=== PATIENT | male | born 1980 | race Caucasian/White ===

== ENCOUNTER 2016-12-13 11:56 | Day surgery (SDC) | payer BC ==
[2016-12-11 09:07] VITALS: BMI 36.2
[~2016-12-13 11:56] MED LIST: LACTATED RINGERS 1,000 ML IV SCH
[2016-12-13 12:50] VITALS: RESP 16; TEMP 98.5
[2016-12-13] MEDS ORDERED: LIDOCAINE 1% 20 ML VIAL (10MG/ML) FOR IV START INTRADERMA ONE (12:53)
[2016-12-13] MEDS ORDERED: LIDOCAINE 1% INJ 10MG/ML (20 ML MDV) ONE (13:40)
[2016-12-13] MEDS ORDERED: PROPOFOL 10 MG/ML 20 ML VIAL IV ONE (13:40)
--- NOTE | 2016-12-13 14:16 | P.PCN ---
Date of Procedure: 12/13/16 Procedure(s) Performed: Procedure: Colonoscopy and biopsy. Preoperative diagnosis: Change in bowel habits. Postoperative diagnosis: Exam of the colon and terminal ileum within normal limits. Preparation: HalfLytely prep. Sedation: Was provided by anesthesia. Brief clinical history: The patient is a 36-year-old male who was evaluated in the office couple weeks ago for change in bowel habits. 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 The patient has 3-4 urgent bowel movements daily. Lately it has been soft and pasty in consistency. This evaluation is to rule out infectious or inflammatory conditions or other pathology. Procedure: With the patient on his left lateral decubitus position and after informed consent and adequate sedation, the perianal area was inspected and it did not show any fissures or fistulas. There were no masses felt on digital rectal examination. The Olympus CFQ 160L video colonoscope was then inserted in the rectum in the usual fashion and advanced to the cecum. I intubated the ileocecal valve and examined the terminal ileum. Terminal ileum and colon appeared healthy with no edema, erythema, friability, ulceration, exudation or spontaneous bleeding. I obtained biopsies from the terminal ileum and randomly from the colon and I retroflexed the endoscope in the rectum before the endoscope was withdrawn. The patient tolerated the procedure well. Plan: The patient was reassured. Will await biopsy results. He will follow up in the office as planned and we will keep you updated on his progress.
[2016-12-13 14:36] VITALS: BP 138/79; PULSE 99
== END 2016-12-13 14:56 | disposition home or self-care (01) ==
LOC: ORWHC2ENDO 11:56
DX: R19.4 Change in bowel habit (principal); K21.9 Gastro-esophageal reflux disease without esophagitis; G47.33 Obstructive sleep apnea (adult) (pediatric); Z79.899 Other long term (current) drug therapy
CPT/HCPCS: 88305; 45380; J2001; J2704

== ENCOUNTER 2018-09-15 15:33 | Inpatient (IN) | payer BC, OTHER ==
[2018-09-15] MEDS ORDERED: NALOXONE 0.4 MG/ML 1 ML VIAL IV PRN (18:38)
[2018-09-15] MEDS ORDERED: ACETAMINOPHEN TAB 325 MG TAB PO PRN (18:38)
[2018-09-15] MEDS ORDERED: IBUPROFEN 400 MG TAB PO PRN (18:38)
[2018-09-15] MEDS ORDERED: VANCOMYCIN IV PER PHARMACY 1 EACH MISC MISCELLANE PRN (18:41)
--- NOTE | 2018-09-15 18:42 | XR ---
EXAMINATION TYPE: XR knee complete LT DATE OF EXAM: 09/15/2018 COMPARISON: NONE HISTORY: Pain and swelling TECHNIQUE: 4 views FINDINGS: I see no fracture nor dislocation. There is soft tissue swelling anterior to the patella. T here is no sign of knee joint effusion. Joint spaces are fairly normal. IMPRESSION: There is evidence of patella bursitis. No fracture. Normal joint spaces.
[2018-09-15 18:46] LABS: Basophils # (A) 0.1 k/uL (0-0.2); Basophils % (A) 1 %; Eosinophils # (A) 0.3 k/uL (0-0.7); Eosinophils % (A) 3 %; HCT 38.1 % (39.0-53.0); HGB 13.4 gm/dL (13.0-17.5); Lymphocytes % (A) 19 %; MCH 29.6 pg (25.0-35.0); MCHC 35.2 g/dL (31.0-37.0); Mean Platelet Volume 5.9; Monocytes # (A) 0.5 k/uL (0-1.0); Monocytes % (A) 4 %; Neutrophils # (A) 7.6 k/uL (1.3-7.7); Neutrophils % (A) 72 %; Platelet Count 392 k/uL (150-450); RBC 4.54 m/uL (4.30-5.90); RDW 12.5 % (11.5-15.5); WBC 10.6 k/uL (3.8-10.6)
[2018-09-15 18:53] LABS: ALT 130 U/L (21-72); AST 76 U/L (17-59); Albumin 4.4 g/dL (3.5-5.0); Alkaline Phosphatase 87 U/L (38-126); Anion Gap 12 mmol/L; Blood Urea Nitrogen 27 mg/dL (9-20); Calcium 9.7 mg/dL (8.4-10.2); Carbon Dioxide 28 mmol/L (22-30); Chloride 102 mmol/L (98-107); Glucose 96 mg/dL (74-99); Potassium 4.4 mmol/L (3.5-5.1); Sodium 142 mmol/L (137-145); Total Bilirubin 0.4 mg/dL (0.2-1.3); Total Protein 8.1 g/dL (6.3-8.2)
[2018-09-15] MEDS ORDERED: VANCOMYCIN 2,250 MG in SODIUM CHLORIDE 0.9% 500 ML 500 ML IVPB ONE (19:00)
--- NOTE | 2018-09-15 19:08 | ED ---
Extremity Problem HPI - General Chief complaint: Extremity Problem,Nontraumatic Stated complaint: Knee pain, sent by dr states he needs surgery Time Seen by Provider: 09/15/18 17:09 Source: patient Mode of arrival: ambulatory Limitations: no limitations - History of Present Illness Initial comments: 38-year-old male with past medical history of hypertension presenting today for chief complaint of left knee redness and swelling x 10days. Patient states that he went take [employer] with his family, a few days later when he returned he noticed pain in the left anterior knee. She denies any falls or trauma. She denies any foreign body of the left anterior knee. Patient states that he was diagnosed with prepatellar bursitis. He has been following this with his primary care provider, he states he has had serial aspirations. He states the last aspiration appeared to have pus in it. He was started on clindamycin, and has been on the antibiotic for the last 5 days. Patient states that he is able to range at the left knee however with full flexion he experiences pain in the anterior knee. Patient denies diffuse knee pain, inability to weight-bear. Patient states a few days ago he did experience chills. He denies any fever or night sweats. Upon arrival patient is well-appearing vital signs within acceptable limits. Patient afebrile. Patient does not appear toxic., - Related Data Home Medications Medication Instructions Recorded Confirmed Omeprazole [PriLOSEC] 20 mg PO DAILY 12/11/16 09/15/18 Clindamycin [Cleocin] 150 mg PO TID 09/15/18 09/15/18 HYDROcodone/APAP 7.5-325MG [[place] 1 tab PO Q3-4H PRN 09/15/18 09/15/18 7.5-325] Indomethacin [Indocin ER] 75 mg PO BID 09/15/18 09/15/18 Losartan-Hctz 50-12.5 mg [Hyzaar 1 tab PO DAILY 09/15/18 09/15/18 50-12.5] Meloxicam [Mobic] 15 mg PO DAILY 09/15/18 09/15/18 Allergies Allergy/AdvReac Type Severity Reaction Status Date / Time No Known Allergies Allergy Verified 09/15/18 16:42 Review of Systems ROS Statement: Those systems with pertinent positive or pertinent negative responses have been documented in the HPI. ROS Other: All systems not noted in ROS Statement are negative. Past Medical History Past Medical History: GERD/Reflux, Hypertension Additional Past Medical History / Comment(s): was recently started on a high BP med but it made him feel nauseated so his Dr told him to stop taking it. may have sleep apnea but has not been diagnosed with it or had any testing done for it. Recent change in bowel habits. History of Any Multi-Drug Resistant Organisms: None Reported Past Surgical History: No Surgical Hx Reported Additional Past Surgical History / Comment(s): Colonoscopy X1. Past Anesthesia/Blood Transfusion Reactions: No Reported Reaction Past Psychological History: No Psychological Hx Reported Smoking Status: Never smoker Past Alcohol Use History: Occasional Past Drug Use History: Marijuana - Past Family History Mother Family Medical History: No Reported History General Exam - General Exam Comments Initial Comments: General: The patient is awake and alert, in no distress, and does not appear acutely ill. Eye: +3 mm pupils are equal, round and reactive to light, extra-ocular movements are intact. No nystagmus. There is normal conjunctiva bilaterally. No signs of icterus. Ears, nose, mouth and throat: There are moist mucous membranes and no oral lesions. Neck: The neck is supple, there is no tenderness or JVD. Cardiovascular: There is a regular rate and rhythm. No murmur, rub or gallop is appreciated. Respiratory: Lungs are clear to auscultation, respirations are non-labored, breath sounds are equal. No wheezes, stridor, rales, or rhonchi. Gastrointestinal: Soft, non-distended, non-tender abdomen without masses or organomegaly noted. There is no rebound or guarding present. Bowel sounds are unremarkable. Musculoskeletal: Positive flexion of the left knee there is anterior knee erythema and bogginess to palpation of the prepatellar bursa. Patient is able to range fully at the right leg, near full range of motion of the left leg with noted pain at full flexion. Strength 5/5 of the LE equal b/l. Sensation intact of the LE equally b/l. DP pulses equal bilaterally 2+. No pain to palpation of the calf on the venous system. No lower extremity edema. Neurological: A&O x 3. CN II-XII intact, There are no obvious motor or sensory deficits. Coordination appears grossly intact. Speech is normal. Skin: Skin is warm and dry and no rashes or lesions are noted. Psychiatric: Cooperative, appropriate mood & affect, normal judgment. Limitations: no limitations Course Vital Signs 09/15/18 15:51 Temperature 98.1 F Pulse Rate 79 Respiratory 18 Rate Blood Pressure 130/80 O2 Sat by Pulse 99 Oximetry Medical Decision Making - Medical Decision Making Physical examination findings concerning for prepatellar bursitis. Given outpatient romo treatment with serial aspirations and abx, I feel admission warranted at this time. Attending physician Dr. Bonilla, contacted Dr. Bynum who accepted admission. Recommending beginning of vancomycin. Patient will be ordered nothing by mouth at midnight. Laboratory studies unremarkable. Patient appears well. Patient will be admitted with a medicine consult for hypertension. Blood cultures pending. - Lab Data Result diagrams: 09/15/18 18:20 09/15/18 18:20 Lab Results 09/15/18 09/15/18 Range/Units 18:20 18:20 WBC 10.6 (3.8-10.6) k/uL RBC 4.54 (4.30-5.90) m/uL Hgb 13.4 (13.0-17.5) gm/dL Hct 38.1 L (39.0-53.0) % MCV 84.0 (80.0-100.0) fL MCH 29.6 (25.0-35.0) pg MCHC 35.2 (31.0-37.0) g/dL RDW 12.5 (11.5-15.5) % Plt Count 392 (150-450) k/uL Neutrophils % 72 % Lymphocytes % 19 % Monocytes % 4 % Eosinophils % 3 % Basophils % 1 % Neutrophils # 7.6 (1.3-7.7) k/uL Lymphocytes # 2.0 (1.0-4.8) k/uL Monocytes # 0.5 (0-1.0) k/uL Eosinophils # 0.3 (0-0.7) k/uL Basophils # 0.1 (0-0.2) k/uL Sodium 142 (137-145) mmol/L Potassium 4.4 (3.5-5.1) mmol/L Chloride 102 (98-107) mmol/L Carbon Dioxide 28 (22-30) mmol/L Anion Gap 12 mmol/L BUN 27 H (9-20) mg/dL Creatinine 0.87 (0.66-1.25) mg/dL Est GFR (CKD-EPI)AfAm >90 (>60 ml/min/1.73 sqM) Est GFR (CKD-EPI)NonAf >90 (>60 ml/min/1.73 sqM) Glucose 96 (74-99) mg/dL Calcium 9.7 (8.4-10.2) mg/dL Total Bilirubin 0.4 (0.2-1.3) mg/dL AST 76 H (17-59) U/L ALT 130 H (21-72) U/L Alkaline Phosphatase 87 (38-126) U/L Total Protein 8.1 (6.3-8.2) g/dL Albumin 4.4 (3.5-5.0) g/dL Disposition Clinical Impression: Patellar bursitis of left knee Disposition: ADMITTED IP TO THIS [facility] Condition: Stable Time of Disposition: 20:36
[2018-09-15] MEDS: SODIUM CHLORIDE 0.9% 1,000 ML IV SCH (20:45)
[2018-09-15] MEDS: MORPHINE SULFATE 4 MG/ML SYRINGE IV PRN (20:49)
[2018-09-15] MEDS: HYDROcodone/APAP 5-325MG 1 EACH TAB PO PRN (22:37)
[2018-09-16] MEDS: MORPHINE SULFATE 4 MG/ML SYRINGE IV PRN ×4 (00:58→22:22)
[2018-09-16] MEDS: SODIUM CHLORIDE 0.9% 1,000 ML IV SCH ×2 (04:04→14:35)
[2018-09-16] MEDS: HYDROcodone/APAP 5-325MG 1 EACH TAB PO PRN ×3 (04:06→18:48)
[2018-09-16] MEDS: VANCOMYCIN 2,000 MG in SODIUM CHLORIDE 0.9% 500 ML 500 ML IVPB SCH ×3 (05:34→21:15)
--- NOTE | 2018-09-16 07:44 | P.HPOR ---
History of Present Illness H&P Date: 09/16/18 Chief Complaint: Left knee pain Patient is 38-year-old male presents with a week and have history of progressive left anterior knee pain/redness/swelling. He's had multiple attempts at aspiration in addition to a short course of some oral antibiotics. He has had worsening of symptoms along with recent fevers and chills. Review of Systems Constitutional: Reports chills, Reports fever Musculoskeletal: left: knee pain, knee swelling Past Medical History Past Medical History: GERD/Reflux, Hypertension Additional Past Medical History / Comment(s): was recently started on a high BP med but it made him feel nauseated so his Dr told him to stop taking it. may have sleep apnea but has not been diagnosed with it or had any testing done for it. Recent change in bowel habits. History of Any Multi-Drug Resistant Organisms: None Reported Past Surgical History: No Surgical Hx Reported Additional Past Surgical History / Comment(s): Colonoscopy X1. Past Anesthesia/Blood Transfusion Reactions: No Reported Reaction Smoking Status: Never smoker - Past Family History Mother Family Medical History: No Reported History Additional Family Medical History / Comment(s): healthy. granfather had heart disease and ra Father Family Medical History: Hyperlipidemia, Hypertension Additional Family Medical History / Comment(s): grandfather had heart disease Medications and Allergies Home Medications Medication Instructions Recorded Confirmed Type Omeprazole [PriLOSEC] 20 mg PO DAILY 12/11/16 09/15/18 History Clindamycin [Cleocin] 150 mg PO TID 09/15/18 09/15/18 History HYDROcodone/APAP 7.5-325MG [[place] 1 tab PO Q3-4H PRN 09/15/18 09/15/18 History 7.5-325] Indomethacin [Indocin ER] 75 mg PO BID 09/15/18 09/15/18 History Losartan-Hctz 50-12.5 mg [Hyzaar 1 tab PO DAILY 09/15/18 09/15/18 History 50-12.5] Meloxicam [Mobic] 15 mg PO DAILY 09/15/18 09/15/18 History Allergies Allergy/AdvReac Type Severity Reaction Status Date / Time No Known Allergies Allergy Verified 09/15/18 16:42 Physical Examination - Knee left Appearance: other (Anterior erythema/fluctuance/tenderness ) Varus alignment in stance: normal Valgus alignment in stance: normal Tenderness with palpation: anterior Pain: with flexion ROM: hyperextension: normal ROM: flexion: 100 degrees Crepitus with motion: No Strength: extension: 5/5 Strength: flexion: 5/5 Results - Labs Labs: Abnormal Lab Results - Last 24 Hours (Table) 09/15/18 09/15/18 Range/Units 18:20 18:20 Hct 38.1 L (39.0-53.0) % BUN 27 H (9-20) mg/dL AST 76 H (17-59) U/L ALT 130 H (21-72) U/L H & H 09/15/18 Range/Units 18:20 Hgb 13.4 (13.0-17.5) gm/dL Hct 38.1 L (39.0-53.0) % Result Diagrams: 09/15/18 18:20 09/15/18 18:20 - Diagnostic results Knee x-ray: report reviewed (Left knee prepatellar soft tissue swelling ) Assessment and Plan Assessment: Left knee septic prepatellar bursitis (1) Patellar bursitis of left knee Current Visit: Yes Status: Acute Priority: Medium Code(s): M70.52 - OTHER BURSITIS OF KNEE, LEFT KNEE SNOMED Code(s): 1918586278511248 Plan: I talked the patient regarding his condition and treatment options. At this point we will plan to proceed with irrigation and debridement with incision and drainage left septic prepatellar bursitis. We will obtain deep cultures and consult infectious disease.
[2018-09-16] MEDS ORDERED: IV FLUID CONTINUATION 1,000 ML IV ONE (12:08)
[2018-09-16] MEDS ORDERED: LIDOCAINE 1% INJ 10MG/ML (20 ML MDV) ONE (13:08)
[2018-09-16] MEDS ORDERED: HYDROmorphone (PF) 1 MG/ML ONE (13:08)
[2018-09-16] MEDS ORDERED: SUCCINYLCHOLINE CHLORIDE 100 MG/5 ML SYR IV ONE (13:08)
[2018-09-16] MEDS ORDERED: PROPOFOL 10 MG/ML 20 ML VIAL IV ONE (13:08)
[2018-09-16] MEDS ORDERED: MIDAZOLAM 2 MG/2 ML VIAL ONE (13:08)
[2018-09-16] MEDS ORDERED: fentaNYL (PF) 50 MCG/ML 2 ML AMP ONE (13:08)
[2018-09-16] MEDS ORDERED: ceFAZolin 3,000 MG in SODIUM CHLORIDE 0.9% IRRIGATIO 3,000 ML IRRIGATION ONE (13:35)
--- NOTE | 2018-09-16 13:52 | P.OP ---
Date of Procedure: 09/16/18 Preoperative Diagnosis: Left knee septic prepatellar bursitis Postoperative Diagnosis: Same Procedure(s) Performed: Incision and drainage with irrigation and debridement left knee septic prepatellar bursitis Anesthesia: VICENTAA Surgeon: Umang Bynum Estimated Blood Loss (ml): 10 Pathology: other (Deep cultures) Condition: stable Disposition: PACU Indications for Procedure: The patient is a 30-year-old male who presents with progressive left knee anterior swelling and redness worsening over the past several days. He did several tented aspirations along with treatment with oral antibiotics. Likely he was worsening. He discussion of the risks and benefits of operative intervention was made with patient. He opted proceed. Operative risks to include persistence of infection, and possible need for subsequent procedures was discussed. Informed consent was obtained. Operative Findings: Purulent/bloody prepatellar fluid with significant bursitis Description of Procedure: The patient was brought to the operating room, and after induction of general anesthesia the left lower extremity was prepped and draped in normal fashion. The tourniquet was inflated to 270 mmHg. A 5 cm incision was made along the anterior aspect of the left knee in the prepatellar region over the palpable fluctuance. The skin and subcutaneous tissues were divided sharply. Electrocautery was used for hemostasis. Purulent and bloody fluid was encountered. Deep cultures were obtained. There was significant bursal thickening that was debrided sharply with a scalpel down to the level of the patella. This material was removed. Pulsatile lavage was utilized. 3 L of fluid was used. I do not feel there was any joint involvement. The skin was loosely reapproximated with simple 3-0 nylon sutures over a Honey drain. A sterile dressing was applied. The tourniquet was deflated less than 25 minutes total tourniquet time. The patient was awoken from general anesthesia and transferred to recovery room in good condition. Blood loss was estimated 10 mL. No complications were incurred. Sponge and needle counts were correct at the end the case.
[2018-09-16] MEDS: MORPHINE SULF 5MG/10ML VL IVP ONE ×3 (14:20→14:30)
[2018-09-16] MEDS ORDERED: ONDANSETRON 4 MG/2 ML VIAL IVP ONE (14:21)
[2018-09-16] MEDS: MEPERIDINE 50 MG/ML SYRINGE IVP ONE ×2 (14:36→14:47)
--- NOTE | 2018-09-16 17:00 | CONS ---
CONSULTATION DATE OF CONSULTATION: 09/16/2018 REASON FOR CONSULTATION: Medical management requested by Dr. Bynum. CONSULTATIONS: This is a pleasant 38 -year-old patient who follows with Dr. Garduno. Chronic stable medical conditions include GERD, hypertension, obesity. The patient for close to now 12 days noticed pain, swelling, redness of the left knee started off in the front of the knee and started to get worse. The patient did go to see his family doctor twice at least and aspirated the 2nd time, pus was noted. The patient 5 days has been getting clindamycin with not much improvement, decided to come in. He has had fever and chills. He does not remember any local trauma except he had gone hunting where he was wearing his hunting pants that can be quite rough and he had been kneeling on the snow. That is the only time he can remember. He does go hunting quite often. Otherwise, no other trauma is known. Earlier today, patient was taken to the OR by Dr. Bynum and some pus in the prepatellar bursitis area was obtained. The patient has got a dressing in the same. No other joints really involved. The patient denies any penile discharge. Denies any rash in the body. REVIEW OF SYSTEMS: CONSTITUTIONAL: Fever, chills. HEENT: None. RESPIRATORY: None. CARDIOVASCULAR: None. GASTROINTESTINAL: None. GENITOURINARY none. MUSCULOSKELETAL as above. DERMATOLOGICAL, HEMATOLOGIC, LYMPHATICS: none. PSYCHIATRY: None. NEUROLOGICAL: None. PAST MEDICAL HISTORY: GERD, hypertension. PAST SURGICAL HISTORY: Colonoscopy. SOCIAL HISTORY: No smoking. Occasional marijuana. Alcohol rarely. . 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 FAMILY HISTORY: Grandfather had heart disease. HOME MEDICATIONS: 1. Prilosec 20 mg a day. 2. Mobic 50 mg p.o. daily. 3. Hyzaar 50/12.5 one tab p.o. daily. 4. Indocin ER 75 mg p.o. b.i.d. 5. [place] 7.5 one tab p.o. q.3 p.r.n. 6. Clindamycin 150 mg p.o. t.i.d. ALLERGIES: None. PHYSICAL EXAMINATION: VITAL SIGNS: Vital signs on presentation: Afebrile. Pulse 79, respiratory 18, blood pressure 130/80, pulse ox 99% on room air. GENERAL APPEARANCE: Well built, BMI 37, lying in bed, awake. EYES: Pupils equal. Conjunctivae normal. HEENT: External appearance of nose and ears normal. Oral cavity normal. NECK: JVD not raised. Mass not palpable. RESPIRATORY: Effort normal. LUNGS are clear. CARDIOVASCULAR: 1st and 2nd sounds normal. No edema. ABDOMEN: Soft, nontender. Liver and spleen not palpable. LYMPHATICS: No lymph nodes palpable in the neck and axilla. PSYCHIATRY: Alert and oriented x3. Mood and affect normal. NEUROLOGICAL: Pupils equal. Cranial nerves grossly intact. Power and sensation grossly intact. EXTREMITIES: Dressing over the left knee. ASSESSMENT: 1. This is a patient who has had increasing pain, swelling of the left knee. Did have it tapped twice outside. Pus was obtained second time around. Failed outpatient treatment. Was taken to the OR today. Pus was obtained. The patient now has got infected and septic left knee prepatellar bursitis, having fever and chills as an outpatient. 2. Gastroesophageal reflux disease. 3. Essential hypertension. 4. Obesity, BMI 37. PLAN: Patient is already on vancomycin. We will have to wait for cultures. We will put the patient on NSAIDs around the clock for anti-inflammatory effect. Care was discussed with the patient. Also getting IV fluids. We will add Lovenox for DVT prophylaxis. The patient should see his family doctor for weight loss measures. Thank you Dr. Bynum. Copy to Dr. Garduno. MMVALERIEL / JANISN: [id number] /
[2018-09-16] MEDS: PANTOPRAZOLE 40 MG TABLET PO SCH (18:09)
[2018-09-16] MEDS: LOSARTAN-HCTZ 50-12.5 MG 1 EACH TAB PO SCH (18:09)
[2018-09-16] MEDS: ENOXAPARIN 40 MG/0.4 ML SYRINGE SQ SCH (18:09)
[2018-09-16] MEDS: NAPROXEN 250 MG TAB PO SCH (22:03)
[2018-09-17] MEDS: HYDROcodone/APAP 5-325MG 1 EACH TAB PO PRN ×4 (01:48→22:08)
[2018-09-17] MEDS: MORPHINE SULFATE 4 MG/ML SYRINGE IV PRN ×4 (02:26→20:04)
[2018-09-17 03:40] LABS: Anion Gap 8 mmol/L; Blood Urea Nitrogen 18 mg/dL (9-20); Calcium 8.9 mg/dL (8.4-10.2); Carbon Dioxide 29 mmol/L (22-30); Chloride 100 mmol/L (98-107); Glucose 125 mg/dL (74-99); Potassium 4.4 mmol/L (3.5-5.1); Sodium 137 mmol/L (137-145)
[2018-09-17] MEDS ORDERED: VANCOMYCIN TROUGH DUE 1 EACH MISC MISCELLANE ONE (04:00)
[2018-09-17] MEDS: VANCOMYCIN 2,000 MG in SODIUM CHLORIDE 0.9% 500 ML 500 ML IVPB SCH (05:30)
[2018-09-17] MEDS: NAPROXEN 250 MG TAB PO SCH (09:18)
[2018-09-17] MEDS: PANTOPRAZOLE 40 MG TABLET PO SCH (09:20)
[2018-09-17] MEDS: ENOXAPARIN 40 MG/0.4 ML SYRINGE SQ SCH (09:20)
[2018-09-17] MEDS: LOSARTAN-HCTZ 50-12.5 MG 1 EACH TAB PO SCH (09:20)
--- NOTE | 2018-09-17 10:43 | P.CONS ---
History of Present Illness - Reason for Consult Consult date: 09/17/18 Septic prepatellar bursitis - History of Present Illness This is a 38-year-old male. He has not had any previous surgeries on his left knee. He states that he thinks he injured his right knee and initially while [place] between and . He states he was kneeling in a ditch for half hour [id number]. He does have a previous injury to the same knee in the spring when he was [place] and he developed fluid around the knee area but he did not have any pain and he did have full range of motion. Patient states that [place] and he did not have any injury to the knee at that time but he was going up and down stairs frequently. On the following , he started having swelling and pain to the knee and he went to urgent care clinic and was told to put ice on it. He was taking ibuprofen around the clock and only seemed to get worse. He went to an orthopedic doctor in [place] and an aspiration was done and he was drained of 13 mL of ice tea-colored fluid. He was told to wrap it, keep ice on it and stay off his leg. He states he did this but the pain continued to get so severe he went back and was placed on [place] and to continue anti-inflammatory medication. He went back to the orthopedic doctor and they tried to drain the knee wound was able to aspirate strawberry milk colored fluid. At that point, patient was placed on clindamycin. He states he did not eat all weekend but took the antibiotic and the pain medication. On Saturday he called his friend, Dr. Avila and he ended up going to his home and was examined by Dr. Avila who then told him to go to the emergency center. Patient was found to be afebrile, white count 10.6, creatinine 0.87, AST 76 and ALT 130, albumin 4.4, blood culture showing no growth at 24 hours and will culture is in progress. He was admitted to the hospital and started on vancomycin and underwent incision and drainage and irrigation and debridement of the left knee septic prepatellar bursitis on September [address] Bynum. Patient states he had severe pain last evening and had difficulty just getting to the bathroom with a walker and has not moved through the night. He is taking morphine and [place] for pain. Reviewed wound culture report from [facility] that revealed MSSA pansensitive. Patient also gives history of recent chest cold and was seen at a clinic and influenza testing was done which came back negative but because influenza was suspected, he was given prescription for Tamiflu but due to the cost he did not obtain it. Review of Systems All systems: negative Constitutional: Denies anorexia, Denies chills, Denies fatigue, Denies fever, Denies poor appetite, Denies weight loss Eyes: denies blurred vision, denies pain Ears, nose, mouth and throat: Denies dysphagia, Denies headache, Denies nasal congestion, Denies nasal discharge, Denies sore throat, Denies vertigo Cardiovascular: Reports leg edema, Denies chest pain, Denies decreased exercise tolerance, Denies dyspnea on exertion, Denies edema, Denies shortness of breath , Denies syncope Respiratory: Reports cough, Denies cough with sputum, Denies dyspnea, Denies excessive sputum, Denies hemoptysis, Denies home oxygen, Denies wheezing Gastrointestinal: Denies abdominal pain, Denies diarrhea, Denies loss of appetite, Denies melena, Denies nausea, Denies vomiting Genitourinary: Denies dysuria Musculoskeletal: Denies frequent falls, Denies hot joints, Denies muscle weakness, Denies myalgias Integumentary: Denies pruritus, Denies rash, Denies wounds Neurological: Denies aphasia, Denies change in mentation, Denies headaches, Denies numbness, Denies weakness Psychiatric: Denies anxiety, Denies depression Endocrine: Denies fatigue, Denies weight change Past Medical History Past Medical History: GERD/Reflux, Hypertension Additional Past Medical History / Comment(s): was recently started on a high BP med but it made him feel nauseated so his Dr told him to stop taking it. may have sleep apnea but has not been diagnosed with it or had any testing done for it. Recent change in bowel habits. History of Any Multi-Drug Resistant Organisms: None Reported Past Surgical History: No Surgical Hx Reported Additional Past Surgical History / Comment(s): Colonoscopy X1. Past Anesthesia/Blood Transfusion Reactions: No Reported Reaction Smoking Status: Never smoker Additional Past Alcohol Use History / Comment(s): Patient has been a lifelong nonsmoker. He denies any marijuana or street drug use. He drinks alcohol rarely. He lives at home with his and 2 children. He is an avid emanuel year-round. 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 - Past Family History Mother Family Medical History: No Reported History Additional Family Medical History / Comment(s): healthy. granfather had heart disease and ra Father Family Medical History: Hyperlipidemia, Hypertension Additional Family Medical History / Comment(s): grandfather had heart disease Medications and Allergies Home Medications Medication Instructions Recorded Confirmed Type Omeprazole [PriLOSEC] 20 mg PO DAILY 12/11/16 09/15/18 History Clindamycin [Cleocin] 150 mg PO TID 09/15/18 09/15/18 History HYDROcodone/APAP 7.5-325MG [[place] 1 tab PO Q3-4H PRN 09/15/18 09/15/18 History 7.5-325] Indomethacin [Indocin ER] 75 mg PO BID 09/15/18 09/15/18 History Losartan-Hctz 50-12.5 mg [Hyzaar 1 tab PO DAILY 09/15/18 09/15/18 History 50-12.5] Meloxicam [Mobic] 15 mg PO DAILY 09/15/18 09/15/18 History Allergies Allergy/AdvReac Type Severity Reaction Status Date / Time No Known Allergies Allergy Verified 09/15/18 16:42 Physical Exam Vitals: Vital Signs Temp Pulse Pulse Pulse Pulse Resp BP 09/17/18 05:00 97.7 F 72 16 120/82 09/16/18 21:00 98.7 F 82 18 140/82 09/16/18 15:30 98 F 80 18 128/67 09/16/18 15:12 72 16 149/93 09/16/18 14:53 74 16 149/82 09/16/18 14:38 81 16 150/86 09/16/18 14:26 155/92 09/16/18 14:23 83 16 09/16/18 14:04 74 16 139/69 09/16/18 13:52 97.0 F L 86 14 139/69 09/16/18 12:02 97.9 F 77 86 16 151/76 09/16/18 11:50 97.9 F 77 18 151/76 09/16/18 11:15 97.8 F 74 20 129/61 Pulse Ox 09/17/18 05:00 97 09/16/18 21:00 95 09/16/18 15:30 92 L 09/16/18 15:12 97 09/16/18 14:53 95 09/16/18 14:38 93 L 09/16/18 14:26 09/16/18 14:23 96 09/16/18 14:04 95 09/16/18 13:52 96 09/16/18 12:02 100 09/16/18 11:50 100 09/16/18 11:15 97 Intake and Output 09/16/18 09/17/18 09/17/18 22:59 06:59 14:59 Intake Total 500 1500 Output Total 950 Balance 500 550 Intake: Intake, IV Titration 500 1150 Amount Sodium Chloride 0.9% 1, 650 000 ml @ 75 mls/hr IV . [id number] [facility] Rx#:[id number] Vancomycin 2,000 mg In 500 500 Sodium Chloride 0.9% 500 ml 500 ml @ 167 mls/hr IVPB Q8H [facility] Rx#: [id number] Oral 350 Output: Urine 950 Other: Voiding Method Toilet Toilet # Voids 1 2 Gen: This is a 38-year-old male. He is resting in bed appears to be comfortable. HEENT: Head is atraumatic, normocephalic. Pupils equal, round. Sclerae is anicteric. Conjunctiva pink. Mucous members of the mouth are moist. No thrush noted. No oropharyngeal erythema or edema. NECK: Supple. No JVD. No lymphadenopathy. No thyromegaly. LUNGS: Clear to auscultation. No wheezes or rhonchi. No intercostal retractions. HEART: Regular rate and rhythm. No murmur. ABDOMEN: Soft. Bowel sounds are present. No masses. No tenderness. EXTREMITIES: No pedal edema. Dorsalis pedis +2 bilaterally. Large dressing in place to the left knee which was not removed. NEUROLOGICAL: Patient is awake, alert and oriented x3. Cranial nerves 2 through 12 are grossly intact. Results Results: Laboratory Results WBC 10.6 k/uL (3.8-10.6) 09/15/18 18:20 RBC 4.54 m/uL (4.30-5.90) 09/15/18 18:20 Hgb 13.4 gm/dL (13.0-17.5) 09/15/18 18:20 Hct 38.1 % (39.0-53.0) L 09/15/18 18:20 MCV 84.0 fL (80.0-100.0) 09/15/18 18:20 MCH 29.6 pg (25.0-35.0) 09/15/18 18:20 MCHC 35.2 g/dL (31.0-37.0) 09/15/18 18:20 RDW 12.5 % (11.5-15.5) 09/15/18 18:20 Plt Count 392 k/uL (150-450) 09/15/18 18:20 Neutrophils % 72 % 09/15/18 18:20 Lymphocytes % 19 % 09/15/18 18:20 Monocytes % 4 % 09/15/18 18:20 Eosinophils % 3 % 09/15/18 18:20 Basophils % 1 % 09/15/18 18:20 Neutrophils # 7.6 k/uL (1.3-7.7) 09/15/18 18:20 Lymphocytes # 2.0 k/uL (1.0-4.8) 09/15/18 18:20 Monocytes # 0.5 k/uL (0-1.0) 09/15/18 18:20 Eosinophils # 0.3 k/uL (0-0.7) 09/15/18 18:20 Basophils # 0.1 k/uL (0-0.2) 09/15/18 18:20 Sodium 137 mmol/L (137-145) 09/17/18 03:17 Potassium 4.4 mmol/L (3.5-5.1) 09/17/18 03:17 Chloride 100 mmol/L (98-107) 09/17/18 03:17 Carbon Dioxide 29 mmol/L (22-30) 09/17/18 03:17 Anion Gap 8 mmol/L 09/17/18 03:17 BUN 18 mg/dL (9-20) 09/17/18 03:17 Creatinine 0.84 mg/dL (0.66-1.25) 09/17/18 03:17 Est GFR (CKD-EPI)AfAm >90 (>60 ml/min/1.73 sqM) 09/17/18 03:17 Est GFR (CKD-EPI)NonAf >90 (>60 ml/min/1.73 sqM) 09/17/18 03:17 Glucose 125 mg/dL (74-99) H 09/17/18 03:17 Calcium 8.9 mg/dL (8.4-10.2) 09/17/18 03:17 Total Bilirubin 0.4 mg/dL (0.2-1.3) 09/15/18 18:20 AST 76 U/L (17-59) H 09/15/18 18:20 ALT 130 U/L (21-72) H 09/15/18 18:20 Alkaline Phosphatase 87 U/L (38-126) 09/15/18 18:20 Total Protein 8.1 g/dL (6.3-8.2) 09/15/18 18:20 Albumin 4.4 g/dL (3.5-5.0) 09/15/18 18:20 Vancomycin Trough 22.4 ug/mL 09/17/18 03:17 CBC & Chem 7: 09/15/18 18:20 09/17/18 03:17 Labs: Abnormal Lab Results - Last 24 Hours (Table) 09/17/18 Range/Units 03:17 Glucose 125 H (74-99) mg/dL Microbiology - Last 24 Hours (Table) 09/16/18 13:30 Gram Stain - Preliminary Knee - Left Wound Culture - Preliminary 09/16/18 13:30 Gram Stain - Preliminary Knee - Left Wound Culture - Preliminary 09/16/18 13:30 Anaerobic Culture - Preliminary Knee - Left 09/16/18 13:30 Anaerobic Culture - Preliminary Knee - Left 09/15/18 20:44 Blood Culture - Preliminary Blood No Growth after 24 hours Assessment and Plan Plan: This is a 38-year-old male who presents to hospital with a septic prepatellar bursitis status post I&D. Patient is currently on vancomycin. Culture obtained from his physician in [place] is MSSA. Tetanus status is up- to-date. Continue supportive care. Further recommendations as patient progresses. The above dictated assessment and findings were discussed with Dr. White. The impression and plan of care have been directed as dictated. Josephine Azevedo nurse practitioner acting as scribe for Dr. White.
[2018-09-17] MEDS: SODIUM CHLORIDE 0.9% 1,000 ML IV SCH ×2 (10:50→23:19)
--- NOTE | 2018-09-17 13:09 | P.PN ---
Subjective Progress Note Date: 09/17/18 Principal diagnosis: Status post I&D infected left prepatellar bursa Patient evaluated today at bedside, he is resting comfortably. He denies any fevers or chills. Pain is controlled at this time. Objective - Vital Signs Vital signs: Vital Signs Temp 98 F 09/17/18 12:31 Pulse 71 09/17/18 12:31 Resp 17 09/17/18 12:31 BP 118/66 09/17/18 12:31 Pulse Ox 97 09/17/18 12:31 Intake & Output 09/16/18 09/17/18 09/17/18 18:59 06:59 18:59 Intake Total 601 2000 Output Total 10 950 Balance 591 1050 Intake: IV 601 Intake, IV Titration 1650 Amount Sodium Chloride 0.9% 1, 650 000 ml @ 75 mls/hr IV . [id number] [facility] Rx#:[id number] Vancomycin 2,000 mg In 1000 Sodium Chloride 0.9% 500 ml 500 ml @ 167 mls/hr IVPB Q8H [facility] Rx#: [id number] Oral 350 Output: Urine 950 Estimated Blood Loss 10 Other: Voiding Method Toilet Toilet Toilet # Voids 1 2 - Exam Left lower extremity: Initial postop bandage was removed, [place] drain was removed. Bloody serosanguineous drainage visualized. No active purulent drainage visualized. Distal neurovascular exam is intact. - Labs CBC & Chem 7: 09/15/18 18:20 09/17/18 03:17 Labs: Abnormal Lab Results - Last 24 Hours (Table) 09/17/18 Range/Units 03:17 Glucose 125 H (74-99) mg/dL Microbiology - Last 24 Hours (Table) 09/16/18 13:30 Gram Stain - Preliminary Knee - Left Wound Culture - Preliminary 09/16/18 13:30 Gram Stain - Preliminary Knee - Left Wound Culture - Preliminary 09/16/18 13:30 Anaerobic Culture - Preliminary Knee - Left 09/16/18 13:30 Anaerobic Culture - Preliminary Knee - Left 09/15/18 20:44 Blood Culture - Preliminary Blood No Growth after 24 hours Assessment and Plan Plan: Assessment: Postop day #1 status post I&D left infected prepatellar bursa Plan: Await culture and sensitivity results and infectious disease recommendations for outpatient antibiotics Daily dressing changes Ice and elevate Pain control Weight-bear as tolerated Further recommendations to follow Time with Patient: Less than 30
[2018-09-17] MEDS ORDERED: VANCOMYCIN 1,750 MG in SODIUM CHLORIDE 0.9% 500 ML 500 ML IVPB SCH (14:00)
[2018-09-17] MEDS: KETOROLAC 30 MG/ML 1 ML VIAL IVP SCH ×2 (15:25→21:05)
[2018-09-17] MEDS: ceFAZolin IN SWFI 2 GM/20 ML SYRINGE IVP SCH (15:30)
--- NOTE | 2018-09-17 23:19 | P.CON ---
Consult Note - . Consult date: 09/17/18 Assessment/Plan:: This is a 38-year-old male. He has not had any previous surgeries on his left knee. He states that he thinks he injured his right knee and initially while [place] between and . He states he was kneeling in a ditch for half hour [id number]. He does have a previous injury to the same knee in the spring when he was [place] and he developed fluid around the knee area but he did not have any pain and he did have full range of motion. Patient states that [place] and he did not have any injury to the knee at that time but he was going up and down stairs frequently. On the following , he started having swelling and pain to the knee and he went to urgent care clinic and was told to put ice on it. He was taking ibuprofen around the clock and only seemed to get worse. He went to an orthopedic doctor in [place] and an aspiration was done and he was drained of 13 mL of ice tea-colored fluid. He was told to wrap it, keep ice on it and stay off his leg. He states he did this but the pain continued to get so severe he went back and was placed on [place] and to continue anti-inflammatory medication. He went back to the orthopedic doctor and they tried to drain the knee wound was able to aspirate strawberry milk colored fluid. At that point, patient was placed on clindamycin. He states he did not eat all weekend but took the antibiotic and the pain medication. On Saturday he called his friend, Dr. Avila and he ended up going to his home and was examined by Dr. Avila who then told him to go to the emergency center. Patient was found to be afebrile, white count 10.6, creatinine 0.87, AST 76 and ALT 130, albumin 4.4, blood culture showing no growth at 24 hours and will culture is in progress. He was admitted to the hospital and started on vancomycin and underwent incision and drainage and irrigation and debridement of the left knee septic prepatellar bursitis on September [address] Bynum. Patient states he had severe pain last evening and had difficulty just getting to the bathroom with a walker and has not moved through the night. He is taking morphine and [place] for pain. Reviewed wound culture report from [facility] that revealed MSSA pansensitive. Patient also gives history of recent chest cold and was seen at a clinic and influenza testing was done which came back negative but because influenza was suspected, he was given prescription for Tamiflu but due to the cost he did not obtain it. Please see the consult note as dictated by nurse practitioner Mrs. Josephine Azevedo. Past is examined and records as do not want is all within This pleasant 30-year-old gentleman is an avid emanuel and is noted for the was hunting spent a lot time on his knees. He really wasn't having any great difficulties with pain or discomfort but no subjective in effusion around the knee. Get something similar in the past. Does relate was out of state hunting several months prior and did encounter a sharp alicea with some injury to the left knee. However after removing the thorny branches from the skin of the knee. No difficulties for the last several months until the acute difficulties began. As noted there was an aspiration performed prior to that date to the outside culture shows evidence of MSSA. Patient is now status post left pre-patella bursa debridement. Large amount of purulent material is drained. Cell count shows evidence of a significant amount of white blood cells and no evidence of crystals. The patient's antibiotic therapy is streamlined to Ancef and high dose. Continue local wound care and ice packs reduce the swelling. Staphylococcal prepatellar bursa infections are often very difficult to completely clear and routinely are treated with outpatient intravenous antibiotic therapy. We will investigate this is an option. I growth evaluation, assessment and plan as dictated by nurse practitioner Mrs. Josephine Azevedo.
[2018-09-18] MEDS: ceFAZolin IN SWFI 2 GM/20 ML SYRINGE IVP SCH ×3 (00:49→15:07)
--- NOTE | 2018-09-18 01:54 | PN ---
PROGRESS NOTE DATE OF SERVICE: 09/18/2018. PRESENTING COMPLAINT: Left knee bursitis. INTERVAL HISTORY: Patient is status post left knee bursitis with an infection, status post I and D, pus was drained. The patient started NSAIDs yesterday. Pain is much improved today. No diarrhea. Tolerating a diet. REVIEW OF SYSTEMS: Done for constitutional, cardiovascular, GI, pulmonary, musculoskeletal; relevant findings as above. CURRENT MEDICATIONS: Reviewed, that include IV cefazolin. PHYSICAL EXAMINATION: Temperature 98, pulse 71, respirations 17, blood pressure 118/66, pulse ox 97% on room air. GENERAL APPEARANCE: Lying in bed comfortable awake. EYES: Pupils equal. Conjunctivae normal. NECK: JVD not raised. Mass not palpable. Respiratory effort normal. LUNGS: Clear. CARDIOVASCULAR: 1st and 2nd heart sounds normal. No edema. ABDOMEN: Soft, nontender. Liver and spleen not palpable. PSYCHIATRY: Alert and oriented x3. Mood and affect normal. EXTREMITIES: Left knee in a dressing. INVESTIGATIONS: Potassium 4.4. Cultures are pending. ASSESSMENT: 1. Acute left knee infected with septic left knee prepatellar bursitis status post incision and drainage, pending cultures. 2. Gastroesophageal reflux disease. 3. Essential hypertension. 4. Obesity, BMI 37. PLAN: Infectious Disease was consulted. The patient is now on IV Ancef. Continue the NSAIDs. Pain is much better controlled. Await culture results. Antibiotics per Dr. Ellsworth. Vancomycin was discontinued. MMODL / IJN: [id number] /
[2018-09-18] MEDS: KETOROLAC 30 MG/ML 1 ML VIAL IVP SCH ×4 (04:08→21:19)
[2018-09-18] MEDS: ENOXAPARIN 40 MG/0.4 ML SYRINGE SQ SCH (08:08)
[2018-09-18] MEDS: LOSARTAN-HCTZ 50-12.5 MG 1 EACH TAB PO SCH (08:08)
[2018-09-18] MEDS: PANTOPRAZOLE 40 MG TABLET PO SCH (08:08)
[2018-09-18] MEDS: HYDROcodone/APAP 5-325MG 1 EACH TAB PO PRN ×2 (12:10→18:15)
[2018-09-18] MEDS: SODIUM CHLORIDE 0.9% 1,000 ML IV SCH (12:10)
[2018-09-18] MEDS ORDERED: BENZOCAINE/MENTHOL LOZENG 1 EACH LOZENGE MUCOUS MEM PRN (12:31)
--- NOTE | 2018-09-18 15:39 | P.PN ---
Subjective Progress Note Date: 09/18/18 Principal diagnosis: Status post I&D infected left prepatellar bursa Patient evaluated today at bedside, he is resting comfortably. He denies any fevers or chills. Pain is controlled at this time. Objective - Vital Signs Vital signs: Vital Signs Temp 98.1 F 09/18/18 12:03 Pulse 69 09/18/18 12:03 Resp 22 09/18/18 12:03 BP 129/67 09/18/18 12:03 Pulse Ox 96 09/18/18 12:03 Intake & Output 09/17/18 09/18/18 09/18/18 18:59 06:59 18:59 Intake Total 600 1150 Output Total 1150 Balance 600 0 Intake: Intake, IV Titration 600 650 Amount Sodium Chloride 0.9% 1, 600 650 000 ml @ 75 mls/hr IV . [id number] [facility] Rx#:[id number] Oral 500 Output: Urine 1150 Other: Voiding Method Toilet Toilet Toilet # Bowel Movements 1 - Exam Left lower extremity: No active purulent drainage visualized. Distal neurovascular exam is intact. - Labs CBC & Chem 7: 09/15/18 18:20 09/17/18 03:17 Labs: Microbiology - Last 24 Hours (Table) 09/15/18 20:44 Blood Culture - Preliminary Blood No Growth after 48 hours Assessment and Plan Plan: Assessment: Postop day #2 status post I&D left infected prepatellar bursa Plan: Await culture and sensitivity results and infectious disease recommendations for outpatient antibiotics Daily dressing changes Ice and elevate Pain control Weight-bear as tolerated Further recommendations to follow Time with Patient: Less than 30
[2018-09-18 21:28] VITALS: RESP 16
--- NOTE | 2018-09-19 00:29 | PN ---
PROGRESS NOTE DATE OF SERVICE: 09/18/2018 PRESENTING COMPLAINT: Left knee bursitis. INTERVAL HISTORY: Patient is status post infected septic left knee bursitis status post I and D, pain and swelling greatly improved. Has been out of bed, tolerating a diet, not feeling well. REVIEW OF SYSTEMS: Done for constitutional, cardiovascular, GI, pulmonary; relevant findings as above. CURRENT MEDICATIONS: Reviewed that include IV cefazolin. PHYSICAL EXAMINATION: VITAL SIGNS: Temperature 98.1, pulse 59, respiration 22, blood pressure 129/67, pulse ox 96% on room air. GENERAL APPEARANCE: Lying in bed comfortable. EYES: Pupils equal. Conjunctivae normal. NECK: JVD not raised. Mass not palpable. RESPIRATORY: Effort lungs are clear. CARDIOVASCULAR: 1st and 2nd sounds normal. No edema. ABDOMEN: Soft, nontender. Liver and spleen not palpable. PSYCHIATRY: Alert and oriented times three. Mood and affect normal. MUSCULOSKELETAL: Dressing over the left knee. INVESTIGATIONS: Potassium 4.4. Cultures coming back showing Staph aureus. ASSESSMENT: 1. Acute left knee infected abscess with sepsis with prepatellar bursitis, status post I and D, growing Staph aureus. 2. Gastroesophageal reflux disease. 3. Essential hypertension. 4. Obesity, BMI 30, BMI 37. PLAN: Continue medication and treatment plan. Await culture results. Antibiotics will be determined accordingly. MMODL / IJN: [id number] /
[2018-09-19] MEDS: ceFAZolin IN SWFI 2 GM/20 ML SYRINGE IVP SCH ×2 (00:50→09:05)
[2018-09-19] MEDS: HYDROcodone/APAP 5-325MG 1 EACH TAB PO PRN ×2 (00:50→06:09)
[2018-09-19] MEDS: KETOROLAC 30 MG/ML 1 ML VIAL IVP SCH ×2 (03:42→09:04)
[2018-09-19] MEDS: PANTOPRAZOLE 40 MG TABLET PO SCH (09:04)
[2018-09-19] MEDS: LOSARTAN-HCTZ 50-12.5 MG 1 EACH TAB PO SCH (09:05)
[2018-09-19] MEDS: ENOXAPARIN 40 MG/0.4 ML SYRINGE SQ SCH (09:05)
[2018-09-19] MEDS ORDERED: MORPHINE ORAL SOLN 10 MG/5 ML CUP PO PRN (10:11)
--- NOTE | 2018-09-19 11:13 | P.PN ---
Progress Note - Text Progress Note Date: 09/19/18 S: The patient has no complaints. They deny shortness of breath or chest pain. O: Afebrile, vital signs stable Homans left lower extremity Distal neurovascular status intact in the left lower extremity Incision clean, dry , and intact, no significant swelling or erythema Cultures show staph aureus A/P: Status post incision and drainage/irrigation and debridement left septic prepatellar bursitis Possible discharge home today on oral antibiotics per infectious disease. Follow-up with Dr. Bynum 2 weeks. Keep incision clean dry.
[2018-09-19] MEDS ORDERED: cefTRIAXone 2,000 MG in SODIUM CHLORIDE 0.9% 100 ML IVPB SCH (12:15)
[2018-09-19 12:42] VITALS: BP 128/76; PULSE 85; TEMP 97.5
--- NOTE | 2018-09-19 22:32 | PN ---
PROGRESS NOTE DATE OF SERVICE: 09/19/2018. PRESENTING COMPLAINT: Left knee bursitis. INTERVAL HISTORY: Patient is status post infected septic left knee prepatellar bursitis, status post I and D. Pain and swelling greatly improved. Cultures showing presumptive Staph aureus. REVIEW OF SYSTEMS: Done for constitutional, cardiovascular, GI, pulmonary, musculoskeletal; relevant findings as above. CURRENT MEDICATIONS: Reviewed, that include IV ceftriaxone. PHYSICAL EXAMINATION: VITAL SIGNS: Temperature 97.5, pulse 85, respirations 16, blood pressure 150/76, pulse ox 92 percent on room air. GENERAL APPEARANCE: Lying in bed comfortable. EYES: Pupils are equal. Conjunctivae normal. NECK: JVD not raised. Mass not palpable. Respiratory effort normal. LUNGS: Clear. CARDIOVASCULAR: 1st and 2nd sounds normal. No edema. ABDOMEN: Soft, nontender. Liver and spleen not palpable. PSYCHIATRY: Alert and oriented x3. Mood and affect normal. MUSCULOSKELETAL: Dressing over the left knee. INVESTIGATIONS: Potassium 4.4, BUN 18, creatinine 0.84. Cultures are growing presumptive Staph aureus. ASSESSMENT: 1. Acute left knee infected prepatellar bursitis with sepsis, status post I and D growing Staph aureus. 2. Gastroesophageal reflux disease. 3. Essential hypertension. 4. Obesity, BMI 37.7. PLAN: Stable. Continue current medication and treatment plan. Antibiotics are being coordinated by Dr. White. Overall clinically patient doing much better. MMODL / IJN: [id number] /
== END 2018-09-19 15:25 | disposition home or self-care (01) | DRG 489 ==
LOC: EC 15:33 → 3NMEDONC 20:02
PROVIDERS: ADMIT Orthopaedic Surgery; ATTEND Orthopaedic Surgery
PROC: 0S9D0ZZ Drainage of Left Knee Joint, Open Approach (ICD-10-PCS; principal; 2018-09-16 10:40)
PROC: 0MBP0ZZ Excision of Left Knee Bursa and Ligament, Open Approach (ICD-10-PCS; principal; 2018-09-16 10:40)
DX: M70.42 Prepatellar bursitis, left knee (principal); E66.9 Obesity, unspecified; I10 Essential (primary) hypertension; K21.9 Gastro-esophageal reflux disease without esophagitis; Z68.37 Body mass index [BMI] 37.0-37.9, adult; Z79.1 Long term (current) use of non-steroidal anti-inflammatories (NSAID); Z79.899 Other long term (current) drug therapy; Z82.49 Family history of ischemic heart disease and other diseases of the circulatory system; Z79.891 Long term (current) use of opiate analgesic
CPT/HCPCS: 36415; 80048; 80053; 80202; 85025; 87040; 87070; 87075; 87077; 87186; 87205; 96365; 96375; 99284